=== PATIENT | female | born 1970 | race Caucasian/White ===

== ENCOUNTER 2021-06-23 11:48 | Emergency (ER) | payer OTHER ==
--- NOTE | 2021-06-23 12:22 | EDM.PDOC ---
ED HPI GENERAL MEDICAL PROBLEM - General Chief Complaint: Lower Extremity Injury/Pain Stated Complaint: RT KNEE PAIN Time Seen by Provider: 06/23/21 12:12 - History of Present Illness INITIAL COMMENTS - FREE TEXT/NARRATIVE: History of present illness: [] Patient was dancing on the evening of 06/21/2021 when her knee suddenly gave out pop. It has been very painful since and she can hardly bear weight because of the pain. It does not really give out again. She has no other injury. She says she has bad knees to begin with. The pain is moderately severe when she tries to bear weight or move it. The pain is sharp. Review of systems: As per history of present illness and below otherwise all systems reviewed and negative. Past medical history: As per history of present illness and as reviewed below otherwise noncontrib utory. Surgical history: As per history of present illness and as reviewed below otherwise noncontributory. Social history: No reported history of drug or alcohol abuse. Family history: As per history of present illness and as reviewed below otherwise noncontributory. Physical exam: Constitutional - well developed, well-nourished and in no acute distress HEENT - normocephalic, no evidence of trauma - external nose and mouth normal - no mass in neck and no JVD - mucosae moist EYES - full EOM, PERRL, no icterus - no evidence of inflammation, injection, or drainage Respiratory - no respiratory distress, equal bilateral expansion Musculoskeletal tender medial right knee-otherwise no gross deformity of long bones or joints - no tenderness, swelling or edema Neurologic - Alert and oriented times four - CN II-XII grossly intact - motor sensory and coordination symmetrically normal Psychiatric - appropriate mood and affect with normal thought content Hematologic - No petechiae or purpura - mucosa appropriate color and sclera not pale - normal nail bed color and refill Integument - no rash or evidence of trauma - normal turgor Diagnostics: [] Therapeutics: [] Impression: [] Plan: [] Definitive disposition and diagnosis as appropriate pending reevaluation and review of above. right knee Pain Score (Numeric/FACES): 7 - Related Data Allergies Allergy/AdvReac Type Severity Reaction Status Date / Time No Known Allergies Allergy Verified 06/23/21 12:12 Home Meds: Home Meds Fenofibrate [Lipofen] 145 mg PO DAILY 06/23/21 [History] Metoprolol Succinate 25 mg PO DAILY 06/23/21 [History] Omeprazole 40 mg PO DAILY 06/23/21 [History] lisinopriL [Lisinopril] 40 mg PO DAILY 06/23/21 [History] Review of Systems - Review of Systems Review Of Systems: Comprehensive ROS is negative, except as noted in HPI. ED EXAM, GENERAL - Physical Exam Exam: See Below Free Text/Narrative:: My physical exam is in the HPI Course - Vital Signs Last Recorded V/S: Last Vital Signs Temp 36.5 C 06/23/21 12:17 Pulse 70 06/23/21 12:17 Resp 18 06/23/21 12:17 BP 140/88 06/23/21 12:17 Pulse Ox 99 06/23/21 12:17 - Orders/Labs/Meds Orders: Active Orders 24 hr Category Date Time Status Knee 3V Rt [CR] Stat Exams 06/23/21 12:21 Taken DME for Discharge [COMM] Stat Oth 06/23/21 12:59 Ordered - Re-Assessments/Exams Free Text/Narrative Re-Assessment/Exam: 06/23/21 13:00 The patient has an x-ray that is normal to me. Anterior posterior drawer as well as varus and valgus stress are stable with slight anterior drawer area's flexibility that is symmetric. 06/23/21 13:02 DME written for right knee immobilizer. Neurovascular status of the distal right lower extremity verified after immobilizer applied. 06/23/21 13:02 Departure - Departure Time of Disposition: 13:01 Disposition: Home, Self-Care 01 Condition: Good Clinical Impression: Sprain of unspecified site of right knee, initial encounter, Sprain of knee - Discharge Information Instructions: Knee Sprain, Adult, [id number] Forms: ED Department Discharge Additional Instructions: Rest ice and elevate. Follow-up orthopedic clinic to check stability of knee ligaments after swelling reduced. [facility] [address], [address] [place] [address] The following information is given to patients seen in the emergency department who are being discharged to home. This information is to outline your options for follow-up care. We provide all patients seen in our emergency department with a follow-up referral. The need for follow-up, as well as the timing and circumstances, are variable depending upon the specifics of your emergency department visit. If you don't have a primary care physician on staff, we will provide you with a referral. We always advise you to contact your personal physician following an emergency department visit to inform them of the circumstance of the visit and for follow-up with them and/or the need for any referrals to a consulting specialist. The emergency department will also refer you to a specialist when appropriate. This referral assures that you have the opportunity for follow-up care with a specialist. All of these measure are taken in an effort to provide you with optimal care, which includes your follow-up. Under all circumstances we always encourage you to contact your private physician who remains a resource for coordinating your care. When calling for follow-up care, please make the office aware that this follow-up is from your recent emergency room visit. If for any reason you are refused follow-up, please contact the [facility] Emergency Department at and asked to speak to the emergency department charge nurse. Sepsis Event Note (ED) - Evaluation Sepsis Screening Result: No Definite Risk - Focused Exam Vital Signs: Vital Signs Temp Pulse Resp BP Pulse Ox 06/23/21 12:17 36.5 C 70 18 140/88 99 - My Orders Last 24 Hours: My Active Orders 06/23/21 12:21 Knee 3V Rt [CR] Stat 06/23/21 12:59 DME for Discharge [COMM] Stat - Assessment/Plan Last 24 Hours: My Active Orders 06/23/21 12:21 Knee 3V Rt [CR] Stat 06/23/21 12:59 DME for Discharge [COMM] Stat
--- NOTE | 2021-06-23 13:01 | CR ---
INDICATION: Knee pain TECHNIQUE: X-ray right knee, three views COMPARISON: None available FINDINGS: The alignment is normal. Negative for acute fracture or dislocation. There is a small knee joint effusion. The joint spaces are preserved. No radiopaque foreign body is seen. IMPRESSION: Small knee joint effusion. Negative for acute fracture or dislocation. Dictated by Yadi Gandhi MD @ 06/23/2021 1:01:06 PM (Electronically Signed)
== END 2021-06-23 13:23 | disposition home or self-care (01) ==
LOC: MW.ED 11:48
DX: S83.91XA Sprain of unspecified site of right knee, initial encounter (principal); Z79.899 Other long term (current) drug therapy; X50.1XXA Overexertion from prolonged static or awkward postures, initial encounter
CPT/HCPCS: 73562-26-RT; 73562-RT; 99283

== ENCOUNTER 2021-08-07 08:01 | Day surgery (SDC) | payer OTHER ==
[~2021-08-07 08:01] MED LIST: Lactated Ringers 1,000 ML IV SCH; ceFAZolin 2 GM in Premix Bag 1 BAG IV SCH
[2021-08-07] MEDS ORDERED: fentaNYL 250 MCG/5 ML SDV ONE (08:27)
[2021-08-07] MEDS ORDERED: Propofol 200 MG/20 ML SDV ONE (08:27)
[2021-08-07] MEDS ORDERED: Albuterol 0.083% 2.5 MG/3 ML Neb Soln NEB PRN (08:42)
[2021-08-07] MEDS ORDERED: Naloxone 0.4 MG/ML SDV IVPUSH PRN (08:42)
[2021-08-07] MEDS ORDERED: Ondansetron 4 MG/2 ML SDV IVPUSH PRN (08:42)
[2021-08-07] MEDS ORDERED: Metoclopramide 10 MG/2 ML SDV IVPUSH PRN (08:42)
[2021-08-07] MEDS ORDERED: Ketamine HCL/NACL, ISO-OSM 50 MG/5 ML Syringe ONE (09:59)
[2021-08-07] MEDS ORDERED: fentaNYL 100 MCG/2 ML SDV ONE ×2 (10:01→10:05)
[2021-08-07] MEDS ORDERED: Ondansetron 4 MG/2 ML SDV ONE (10:17)
[2021-08-07] MEDS ORDERED: Ketorolac 30 MG/ML SDV ONE (10:17)
[2021-08-07] MEDS ORDERED: Dexamethasone 4 MG/ML 5 ML MDV ONE ×2 (10:17→11:57)
[2021-08-07] MEDS: HYDROmorphone 1 MG/ML Syringe IVPUSH PRN ×2 (10:39→10:49)
[2021-08-07] MEDS: fentaNYL 100 MCG/2 ML SDV IVPUSH PRN ×2 (11:00→11:07)
[2021-08-07] MEDS ORDERED: Ropivacaine 0.5% 5 MG/ML 30 ML SDV ONE (11:56)
[2021-08-07] MEDS ORDERED: Midazolam 1 MG/ML 2 ML SDV ONE (11:57)
[2021-08-07] MEDS ORDERED: Lidocaine 1% 5 ML VIAL ONE (11:59)
== END 2021-08-07 13:54 | disposition home or self-care (01) ==
LOC: MW.SDS 08:01
PROVIDERS: ATTEND Orthopaedic Surgery
DX: S83.211A Bucket-handle tear of medial meniscus, current injury, right knee, initial encounter (principal); S83.511A Sprain of anterior cruciate ligament of right knee, initial encounter; E78.00 Pure hypercholesterolemia, unspecified; F17.210 Nicotine dependence, cigarettes, uncomplicated; F17.290 Nicotine dependence, other tobacco product, uncomplicated; I10 Essential (primary) hypertension; E11.9 Type 2 diabetes mellitus without complications; K21.9 Gastro-esophageal reflux disease without esophagitis; Z79.899 Other long term (current) drug therapy; X58.XXXA Exposure to other specified factors, initial encounter
CPT/HCPCS: 29881; J0131; J1100; J1170; J1885; J2250; J2405; J2704; J2795; J3010; J7120; 01400; 64450; 76942

== ENCOUNTER 2023-03-26 10:41 | Day surgery (SDC) | payer OTHER ==
[~2023-03-26 10:41] MED LIST changes: +Sodium Chloride 0.9% 10 ML Syringe FLUSH PRN; +Sodium Chloride 0.9% 2.5 ML Syringe FLUSH PRN; +Sodium Chloride 0.9% 20 ML SDV IV PRN; -ceFAZolin 2 GM in Premix Bag 1 BAG IV SCH; +propofoL 50 ML ONE
== END 2023-03-26 12:10 | disposition home or self-care (01) ==
LOC: MW.SDS 10:41
PROVIDERS: ATTEND Surgery
DX: D12.0 Benign neoplasm of cecum (principal); D12.2 Benign neoplasm of ascending colon; D12.8 Benign neoplasm of rectum; I10 Essential (primary) hypertension; E78.00 Pure hypercholesterolemia, unspecified; F17.290 Nicotine dependence, other tobacco product, uncomplicated; Z79.899 Other long term (current) drug therapy; Z90.49 Acquired absence of other specified parts of digestive tract
CPT/HCPCS: 45380; J2704; J7120; 00811

== ENCOUNTER 2023-12-29 08:24 | Day surgery (SDC) | payer BC, OTHER ==
[~2023-12-29 08:24] MED LIST changes: -Lactated Ringers 1,000 ML IV SCH; -propofoL 50 ML ONE
[2023-12-29] MEDS: Lactated Ringers 1,000 ML IV SCH (08:51)
[2023-12-29] MEDS ORDERED: propofoL 50 ML ONE (09:54)
[2023-12-29] MEDS ORDERED: Lidocaine 2% 5 ML SDV ONE (10:12)
== END 2023-12-29 11:06 | disposition home or self-care (01) ==
LOC: MW.SDS 08:24
PROVIDERS: ATTEND Surgery
DX: Z12.11 Encounter for screening for malignant neoplasm of colon (principal); I10 Essential (primary) hypertension; E78.00 Pure hypercholesterolemia, unspecified; E11.9 Type 2 diabetes mellitus without complications; Z86.010 Personal history of colon polyps; F17.210 Nicotine dependence, cigarettes, uncomplicated; F17.290 Nicotine dependence, other tobacco product, uncomplicated; Z79.899 Other long term (current) drug therapy
CPT/HCPCS: 45378; J2704; J7120; J3490